=== PATIENT | female | born 1980 | race Two or more races ===

== ENCOUNTER 2024-09-27 10:50 | Emergency (ER) | payer MEDICAID, OTHER ==
[~2024-09-27] VITALS: Ht 157.5 cm; Wt 61.1 kg
[2024-09-27 11:23] LABS: Basophils # (auto) 0 10 ^3/uL (0-0.2); Basophils % (auto) 0.4 % (0.0-2.0); Eosinophils # (auto) 0.1 10 ^3/uL (0-0.8); Eosinophils % (auto) 1.1 % (0.0-7.0); Hematocrit 39.8 % (36.0-46.0); Hemoglobin 13.5 g/dL (12.2-16.2); Lymphocytes # (auto) 2.3 10 ^3/uL (0.4-5.4); Lymphocytes % (auto) 30.1 % (10.0-50.0); Mean Corpuscular Hemoglobin 31.3 pg (28.0-32.0); Mean Corpuscular Hgb Conc. 33.9 g/dL (32.0-36.0); Mean Corpuscular Volume 92.4 fL (80.0-100.0); Monocytes # (auto) 0.6 10 ^3/uL (0-1.3); Monocytes % (auto) 7.4 % (0.0-12.0); Neutrophils # (auto) 4.7 10 ^3/uL (1.6-8.6); Nucleated Red Blood Cells % 0.1 %; Platelet Count (auto) 238 10^3/uL (140-450); Red Cell Distribution Width 13.2 % (11.8-14.3); White Blood Cell 7.6 10^3/uL (4.4-10.8)
--- NOTE | 2024-09-27 11:23 | ED.PDOC ---
History of Present Illness HPI Comments This is a 43-year-old female who comes in with chief complaint of rectal bleeding x4 days. The patient denies any abdominal pain. The patient has a recent history of constipation. The patient now states that she also had hemorrhoids several years ago. The patient states that it was bright red blood and it filled up the toilet somewhat. Chief Complaint: GI Bleed Time Seen by MD: 10:51 Reviewed Notes: Nurses Notes, Medications, Allergies (No allergies to medications) Allergies: Coded Allergies: NO KNOWN ALLERGIES (Unverified , 09/27/24) Home Meds Active Scripts Hydrocortisone Acetate (Anusol-Hc) 25 Mg Sup, 1 SUPP [place] BID, #14 SUPP Prov:JUAN C ACUNA MD 09/27/24 Information Source: Patient Mode of Arrival: Ambulatory Severity: Mild Timing: Days (Started four days ago) Duration: Intermittent Prehospital treatment: None Associated signs and symptoms Rectal bleeding with some constipation Past Medical History Past Medical History (Other): Previous hemorrhoids Surgical History: Hernia Repair SHUTTLE THREADER History: No Pertinent SHUTTLE THREADER History Family History Family History: No family hx of Cancer, No family hx of DM, No family hx of Heart antoine Social History Smoker: Non-Smoker Alcohol: Denies ETOH Use Drugs: Denies Drug Use Lives In: Home Constitutional: denies: chills, diaphoresis, fatigue, fever, malaise, sweats, weakness, others EENTM: denies: blurred vision, double vision, ear bleeding, ear discharge, ear drainage, ear pain, ear ringing, eye pain, eye redness, hearing loss, mouth pain, mouth swelling, nasal discharge, nose bleeding, nose congestion, nose pain, photophobia, tearing, throat pain, throat swelling, voice changes, others Respiratory: denies: cough, hemoptysis, orthopnea, SOB at rest, shortness of breath, SOB with excertion, stridor, wheezing, others Cardiovascular: denies: chest pain, dizzy spells, diaphoresis, Dyspnea on exertion, edema, irregular heart beat, left arm pain, lightheadedness, palpitations, PND, syncope, others Gastrointestinal: reports: rectal bleeding; denies: abdomen distended, abdominal pain, blood streaked bowels, constipated, diarrhea, dysphagia, difficulty swallowing, hematemesis, melena, nausea, poor appetite, poor fluid intake, rectal pain, vomiting, others Genitourinary: denies: abnormal vagina bleeding, burning, dyspareunia, dysuria, flank pain, frequency, hematuria, incontinence, pain, , vagina discharge, urgency, others Neurological: denies: dizziness, fainting, headache, left sided numbness, left sided weakness, numbness, paresthesia, pre-existing deficit, right sided numbness, right sided weakness, seizure, speech problems, tingling, tremors, weakness, others Musculoskeletal: denies: back pain, gout, joint pain, joint swelling, muscle pain, muscle stiffness, neck pain, others Integumetry: denies: bruises, change in color, change in hair/nails, dryness, laceration, lesions, lumps, rash, wounds, others Allergic/Immunocompromised: denies: Difficulty Healing, Frequent Infections, Hives, Itching, others Hematologic/Lymphatic: denies: anemia, blood clots, easy bleeding, easy bruising, swollen glands, others Endocrine: denies: excessive hunger, excessive sweating, excessive thirst, excessive urination, flushing, intolerance to cold, intolerance to heat, unexplained weight gain, unexplained weight loss, others Psychiatric: denies: anxiety, bipolar disorder, depression, hopeless, panic disorder, schizophrenia, sleepless, suicidal, others Physical Exam General Appearance: No Apparent Distress HEENT: Normal ENT Inspection, Pharynx Normal, TMs Normal Neck: Full Range of Motion, Non-Tender, Normal, Normal Inspection Respiratory: Chest Non-Tender, Lungs Clear, No Accessory Muscle Use, No Respiratory Distress, Normal Breath Sounds Cardiovascular: No Edema, No JVD, No Murmur, No Gallop, Normal Peripheral Pulses, Regular Rate/Rhythm Breast Exam: Deferred Gastrointestinal: No Organomegaly, Non Tender, No Pulsatile Mass, Normal Bowel Sounds, Soft Genitalia: Deferred Pelvic: Deferred Rectal: Hemorrhoids Extremities: No calf tenderness, Normal capillary refill, Normal inspection, Normal range of motion, Non-tender, No pedal edema Musculoskeletal : Apperance: Normal Neurologic: Alert, fermenter operator II-XII nml as Tested, No Motor Deficits, Normal Affect, Normal Mood, No Sensory Deficits Cerebellar Function: Normal Reflexes: Normal Skin: Dry, Normal Color, Warm Lymphatic: No Adenopathy Was a procedure done? Was a procedure done?: No Differential Dx Considerations may include: Hemorrhoids, generalized weakness, electrolyte imbalance X-Ray, Labs, Meds, VS Vital Signs Date Time Temp Pulse Resp B/P (MAP) Pulse Ox O2 Delivery O2 Flow Rate FiO2 09/27/24 11:31 98.6 87 18 150/79 (102) 100 98.6 Lab Test 09/27/24 11:10 Range/Units White Blood Count 7.6 4.4-10.8 10^3/uL Red Blood Count 4.30 4.0-5.20 10^6/uL Hemoglobin 13.5 12.2-16.2 g/dL Hematocrit 39.8 36.0-46.0 % Mean Corpuscular Volume 92.4 80.0-100.0 fL Mean Corpuscular Hemoglobin 31.3 28.0-32.0 pg Mean Corpuscular Hemoglobin Concent 33.9 32.0-36.0 g/dL Red Cell Distribution Width 13.2 11.8-14.3 % Platelet Count 238 140-450 10^3/uL Mean Platelet Volume 9.1 6.9-10.8 fL Neutrophils (%) (Auto) 61.0 37.0-80.0 % Lymphocytes (%) (Auto) 30.1 10.0-50.0 % Monocytes (%) (Auto) 7.4 0.0-12.0 % Eosinophils (%) (Auto) 1.1 0.0-7.0 % Basophils (%) (Auto) 0.4 0.0-2.0 % Neutrophils # (Auto) 4.7 1.6-8.6 10 ^3/uL Lymphocytes # (Auto) 2.3 0.4-5.4 10 ^3/uL Monocytes # (Auto) 0.6 0-1.3 10 ^3/uL Eosinophils # (Auto) 0.1 0-0.8 10 ^3/uL Basophils # (Auto) 0 0-0.2 10 ^3/uL Nucleated Red Blood Cells 0.1 % The patient's CBC is within normal limits The patient was being discharged and will follow up with the primary care doctor The patient will return to the emergency department's the condition worsens The patient was given an Anusol suppository Time of 1ST Reevaluation: 11:46 Reevaluation 1ST: Unchanged Patient Education/Counseling: Diagnosis, Treatment, Prognosis, Need For Follow Up Family Education/Counseling: No Family Present Departure 1 Departure Time of Disposition: 11:46 Impression: Primary Impression: Internal hemorrhoids Disposition: 01 HOME / SELF CARE / HOMELESS Condition: Fair e-Prescriptions Hydrocortisone Acetate (Anusol-Hc) 25 Mg Sup 1 SUPP WY BID, #14 SUPP Prov: JUNA C ACUNA MD 09/27/24 Discharged With: Self Critical Care Note Critical Care Time?: No Stability Stability form required: No Heart Score Heart Score: Heart Score Response (Comments) Value History N/A 0 EKG N/A 0 Age N/A 0 Risk Factors N/A 0 Troponin N/A 0 Total 0 JUAN C ACUNA MD Sep 27, 2024 11:23
[2024-09-27] MEDS ORDERED: HYDR25SU21 PR (11:43)
[2024-09-27 12:00] VITALS: BP 124/64; PULSE 70; RESP 16; TEMP 97.6; O2SAT 99
== END 2024-09-27 12:03 | disposition home or self-care (01) ==
LOC: ER 10:50
DX: K64.8 Other hemorrhoids (principal); Z98.890 Other specified postprocedural states; Z87.19 Personal history of other diseases of the digestive system
CPT/HCPCS: 36415; 85025